=== PATIENT | female | born 1975 | race Caucasian/White ===

== ENCOUNTER 2021-08-12 14:14 | Emergency (ER) | payer OTHER ==
[2021-08-12 16:08] VITALS: RESP 16
--- NOTE | 2021-08-12 17:50 | XR ---
EXAMINATION TYPE: XR ribs LT w pa chest xray, XR shoulder complete LT, XR thoracic spine 2V, XR lumba r spine 2 or 3V DATE OF EXAM: 08/12/2021 COMPARISON: NONE HISTORY: Pain after injury TECHNIQUE: Single frontal view of the chest with multiple views of the left ribs. 3 views of the left shoulder. Frontal and lateral views of the thoracic spine. Frontal and lateral views of the lumbar s pine with coned down views of lumbosacral junction. FINDINGS: Chest/Left Ribs: Cardiomediastinal silhouette appears within normal limits. No focal consolidation, pleural effusion, or pneumothorax. No rib fracture identified. Left shoulder: No acute fracture or dislocation. Glenohumeral and acromioclavicular joint spaces are maintained. Ove rlying soft tissues appear unremarkable. Thoracic spine: Thoracic vertebral body heights and alignment are maintained. Moderate degenerative changes of the mi dthoracic spine with spondylosis and minimal disc height loss. Lumbar spine: Lumbar vertebral body heights. Mild dextroscoliotic curvature. Straightening of the lumbar lordosis. No spondylolisthesis or spondylolysis. Mild multilevel degenerative disc changes with anterior spondy losis and disc height loss. No facet arthropathy. Mild degenerative changes of the sacroiliac joints. IMPRESSION: 1. No acute osseous abnormality identified of the left ribs, left shoulder, thoracic spine, and lumba r spine. 2. No acute cardiopulmonary process..
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
[2021-08-12] MEDS ORDERED: KETOROLAC 15 MG/ML 1 ML VIAL IM STA (17:57)
[2021-08-12 19:10] VITALS: BP 156/78; PULSE 55; TEMP 97.2
== END 2021-08-12 18:50 | disposition home or self-care (01) ==
LOC: EC 14:14
DX: S29.012A Strain of muscle and tendon of back wall of thorax, initial encounter (principal); S39.012A Strain of muscle, fascia and tendon of lower back, initial encounter; S46.912A Strain of unspecified muscle, fascia and tendon at shoulder and upper arm level, left arm, initial encounter; S20.212A Contusion of left front wall of thorax, initial encounter; I10 Essential (primary) hypertension; Z79.899 Other long term (current) drug therapy; W18.30XA Fall on same level, unspecified, initial encounter; W22.09XA Striking against other stationary object, initial encounter; Y92.481 Parking lot as the place of occurrence of the external cause
CPT/HCPCS: 71101; 72070; 72100; 73030; 99284; 96372; J1885